=== PATIENT | female | born 2000 | race Two or more races ===

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

== ENCOUNTER 2018-03-18 18:50 | Emergency (ER) | payer OTHER ==
[~2018-03-18] VITALS: Ht 162.6 cm; Wt 99.8 kg
[2018-03-18 20:25] LABS: Basophils # (auto) 0 uL; Basophils % (auto) 0.3 % (0.0-2.0); Eosinophils # (auto) 0.1 uL; Eosinophils % (auto) 0.8 % (0.0-7.0); Hematocrit 40.3 % (36.0-46.0); Hemoglobin 13.9 g/dL (12.2-16.2); Lymphocytes % (auto) 15.5 % (10.0-50.0); Mean Corpuscular Hemoglobin 30.8 pg (28.0-32.0); Mean Corpuscular Hgb Conc. 34.4 g/dL (32.0-36.0); Mean Corpuscular Volume 89.6 fL (80.0-100.0); Monocytes # (auto) 0.6 uL; Monocytes % (auto) 4.9 % (0.0-12.0); Neutrophils % (auto) 78.5 % (37.0-80.0); Platelet Count (auto) 219 10^3/uL (140-450); Red Cell Distribution Width 12.9 % (11.8-14.3); White Blood Cell 12.7 10^3/uL (4.4-10.8)
[2018-03-18 20:43] LABS: Albumin 3.3 g/dL (3.4-5.0); BUN/Creatinine Ratio 6.7; Calcium 8.5 mg/dL (8.5-10.1); Potassium 3.7 mmol/L (3.5-5.1)
[2018-03-18 20:46] LABS: Bilirubin, Total 0.5 mg/dL (0.2-1.0); Total Protein 7.5 g/dL (6.4-8.2)
[2018-03-18 21:18] LABS: Urine Specific Gravity 1.022 (1.001-1.035)
[2018-03-18 21:19] LABS: Urine Blood 1+ /uL (Negative)
[2018-03-18 21:20] LABS: Urine Bacteria MODERATE /hpf (None Seen); Urine Mucus FEW (None Seen); Urine WBC 25-30 /hpf (0 - 5)
[2018-03-18 22:47] VITALS: BP 108/66
== END 2018-03-19 00:18 | disposition home or self-care (01) ==
LOC: ER 18:50
DX: O23.41 Unspecified infection of urinary tract in pregnancy, first trimester (principal); Z3A.11 11 weeks gestation of pregnancy
CPT/HCPCS: 36415; 76801; 80053; 81001; 82150; 83690; 84702; 85025

== ENCOUNTER 2018-09-12 08:30 | Observation (INO) | payer MEDICAID, OTHER ==
[2018-09-12 09:32] LABS: Urine Bacteria MANY /hpf (None Seen); Urine Blood 1+ /uL (Negative); Urine Mucus FEW (None Seen); Urine WBC 17 /hpf (0 - 5)
[2018-09-12 11:15] LABS: Basophils # (auto) 0 uL; Eosinophils # (auto) 0 uL; Eosinophils % (auto) 0.2 % (0.0-7.0); Hemoglobin 10.8 g/dL (12.2-16.2); Mean Corpuscular Hemoglobin 26.9 pg (28.0-32.0); Monocytes # (auto) 0.5 uL
[2018-09-12 11:17] LABS: Basophils % (auto) 0.2 % (0.0-2.0); Hematocrit 32.5 % (36.0-46.0); Lymphocytes # (auto) 1.9 uL; Lymphocytes % (auto) 16.5 % (10.0-50.0); Mean Corpuscular Hgb Conc. 33.1 g/dL (32.0-36.0); Mean Corpuscular Volume 81.4 fL (80.0-100.0); Neutrophils % (auto) 79.1 % (37.0-80.0); Platelet Count (auto) 256 10^3/uL (140-450); Red Blood Cells 3.99 10^6/uL (4.0-5.20); Red Cell Distribution Width 14.4 % (11.8-14.3); White Blood Cell 11.4 10^3/uL (4.4-10.8)
[2018-09-12 11:26] LABS: Albumin 2.5 g/dL (3.4-5.0); Anion Gap 8 (5-15); Blood Urea Nitrogen 5 mg/dL (7-18); Calcium 8.2 mg/dL (8.5-10.1); Carbon Dioxide 21 mmol/L (21-32); Chloride 107 mmol/L (98-107); Glucose 72 mg/dL (74-106); Potassium 3.7 mmol/L (3.5-5.1); Sodium 136 mmol/L (136-145)
[2018-09-12 11:31] LABS: Alanine Aminotransferase 13 U/L (13-56); Alkaline Phosphatase 211 U/L (45-117); Aspartate Aminotransferase 11 U/L (15-37); BUN/Creatinine Ratio 11.4; Bilirubin, Total 0.4 mg/dL (0.2-1.0); Total Protein 6.5 g/dL (6.4-8.2); Uric Acid 4.3 mg/dL (2.6-6.0)
[2018-09-12 11:33] LABS: INR 0.9 (0.9-1.15); Partial Thromboplastin Time 26.4 sec (23.78-33.04); Prothrombin Time 9.7 sec (9.27-12.13)
[2018-09-12 11:45] LABS: GFR African American > 60 mL/min; GFR Non-African American > 60 mL/min
== END 2018-09-12 12:15 | disposition home or self-care (01) | DRG 566 ==
LOC: LDRP 08:30
PROVIDERS: ADMIT Obstetrics & Gynecology; ATTEND Obstetrics & Gynecology
DX: O23.43 Unspecified infection of urinary tract in pregnancy, third trimester (principal); O26.893 Other specified pregnancy related conditions, third trimester; N89.8 Other specified noninflammatory disorders of vagina; O62.9 Abnormality of forces of labor, unspecified; O21.2 Late vomiting of pregnancy; Z3A.37 37 weeks gestation of pregnancy
CPT/HCPCS: 36415; 59025; 80053; 81001; 81002; 84550; 85025; 85610; 85730; G0378

== ENCOUNTER 2018-09-23 17:00 | Observation (INO) | payer MEDICAID ==
[2018-09-23] MEDS ORDERED: PREN-96 PO (18:41)
== END 2018-09-23 20:03 | disposition home or self-care (01) | DRG 566 ==
LOC: LDRP 17:00
PROVIDERS: ADMIT Specialist; ATTEND Specialist
DX: O26.853 Spotting complicating pregnancy, third trimester (principal); O62.9 Abnormality of forces of labor, unspecified; O99.343 Other mental disorders complicating pregnancy, third trimester; F12.90 Cannabis use, unspecified, uncomplicated; Z3A.39 39 weeks gestation of pregnancy
CPT/HCPCS: 59025; G0378

== ENCOUNTER 2018-09-27 10:00 | Observation (INO) | payer MEDICAID ==
[~2018-09-27 10:00] MED LIST: PREN-96 PO
== END 2018-09-27 11:25 | disposition home or self-care (01) | DRG 566 ==
LOC: LDRP 10:00
PROVIDERS: ADMIT Obstetrics & Gynecology; ATTEND Obstetrics & Gynecology
DX: O48.0 Post-term pregnancy (principal); Z3A.40 40 weeks gestation of pregnancy
CPT/HCPCS: 59025; 76818; 81002; G0378

== ENCOUNTER 2018-09-29 10:30 | Observation (INO) | payer MEDICAID | END 2018-09-29 12:15 | disposition home or self-care (01) | DRG 566 | LOC: LDRP 10:30 | PROVIDERS: ADMIT Specialist; ATTEND Specialist | DX: O48.0 Post-term pregnancy (principal); Z3A.40 40 weeks gestation of pregnancy | CPT/HCPCS: 59025; 76818; 81002; G0378 ==

== ENCOUNTER 2018-09-30 09:20 | Inpatient (IN) | payer MEDICAID ==
[~2018-09-30] VITALS: Ht 162.6 cm; Wt 105.7 kg
[2018-09-30] MEDS ORDERED: LACT. RINGERS/OXYTOCIN 20UNITS 1,000 ML IV SCH (09:25)
[2018-09-30] MEDS ORDERED: METHYLERGONOVINE MALEATE 0.2 MG/ML AMP IM PRN (09:30)
[2018-09-30] MEDS ORDERED: PENICILLIN G POT 5MIL/D5 50ML 50 ML IV ONE (09:30)
[2018-09-30] MEDS ORDERED: LIDOCAINE 2%HCL (LOCAL ANESTH.) INJ 20ML MDV ID ONE (09:30)
[2018-09-30] MEDS ORDERED: NALBUPHINE HCL 10 MG/1ml INJECTION IV PRN (09:30)
[2018-09-30] MEDS: LACTATED RINGER'S 1,000 ML IV SCH ×2 (09:50→15:03)
[2018-09-30 10:11] LABS: Basophils # (auto) 0 uL; Basophils % (auto) 0.4 % (0.0-2.0); Eosinophils # (auto) 0 uL; Eosinophils % (auto) 0.2 % (0.0-7.0); Hematocrit 34.1 % (36.0-46.0); Hemoglobin 11.1 g/dL (12.2-16.2); Mean Corpuscular Hemoglobin 26.4 pg (28.0-32.0); Mean Corpuscular Hgb Conc. 32.7 g/dL (32.0-36.0); Mean Corpuscular Volume 80.7 fL (80.0-100.0); Monocytes # (auto) 0.5 uL; Neutrophils # (auto) 7.8 uL; Neutrophils % (auto) 75.4 % (37.0-80.0); Nucleated Red Blood Cells % 0.1 %; Platelet Count (auto) 281 10^3/uL (140-450); Red Blood Cells 4.22 10^6/uL (4.0-5.20); Red Cell Distribution Width 15.5 % (11.8-14.3); White Blood Cell 10.3 10^3/uL (4.4-10.8)
[2018-09-30 10:23] LABS: INR 0.88 (0.9-1.15); Partial Thromboplastin Time 25.2 sec (23.78-33.04); Prothrombin Time 9.5 sec (9.27-12.13)
[2018-09-30 10:24] LABS: Urine Bacteria MOD /hpf (None Seen); Urine Blood Negative /uL (Negative); Urine Mucus FEW (None Seen); Urine Specific Gravity 1.025 (1.001-1.035); Urine WBC 10 /hpf (0 - 5)
[2018-09-30 10:26] LABS: Albumin 2.6 g/dL (3.4-5.0); Calcium 8.5 mg/dL (8.5-10.1); Potassium 3.7 mmol/L (3.5-5.1)
[2018-09-30 10:28] LABS: Alcohol, Urine < 3.0 mg/dL (0-5); Amphetamine Screen, Urine NEGATIVE (NEGATIVE); Barbiturate Scree,Urine NEGATIVE (NEGATIVE); Benzodiazephine Screen, Urine NEGATIVE (NEGATIVE); Cannabinoid Screen, Urine NEGATIVE (NEGATIVE); Cocaine Screen, Urine NEGATIVE (NEGATIVE); Opiate Scree,Urine NEGATIVE (NEGATIVE); Phencyclidine Screen, Urine NEGATIVE (NEGATIVE)
[2018-09-30 10:29] LABS: BUN/Creatinine Ratio 10.2; Bilirubin, Total 0.3 mg/dL (0.2-1.0); Total Protein 6.6 g/dL (6.4-8.2)
[2018-09-30] MEDS: DERMOPLAST 60ML BOTTLE TOP PRN (10:47)
[2018-09-30] MEDS: PHISODERM TOP SOLN 240ML BTL TOP PRN (10:47)
[2018-09-30] MEDS: WITCH HAZEL-GLYCERIN PAD TOP PRN (10:47)
[2018-09-30] MEDS: PENICILLIN G POTASSIUM 2,500,000 UNITS in D5W 5% 50 ML IV SCH ×2 (15:04→19:41)
[2018-10-01] MEDS ORDERED: fentaNYL CITRATE 100 MCG/2 ML VL IV ONE
[2018-10-01] MEDS ORDERED: LIDOCAINE W/ EPINEPHRINE 1% 20ML VIAL ID ONE
[2018-10-01] MEDS ORDERED: NALOXONE HCL 0.4 MG/ML VIAL IV ONE
[2018-10-01] MEDS ORDERED: ePHEDrine SULFATE 50 MG/ML AMP IV ONE
[2018-10-01] MEDS ORDERED: fentaNYL W ROPIVACAINE 150 ML EPI SCH
[2018-10-01] MEDS ORDERED: LIDOCAINE W/ EPINEPHRINE 1 % INJ 30ML ONE (00:28)
[2018-10-01] MEDS ORDERED: LIDOCAINE HCL 2 %PF INJ 10ML AMP IJ ONE ×2 (00:31)
[2018-10-01] MEDS: PENICILLIN G POTASSIUM 2,500,000 UNITS in D5W 5% 50 ML IV SCH ×3 (00:41→09:40)
[2018-10-01] MEDS ORDERED: SODIUM CHLORIDE LOCK 10 ML ONE (01:51)
[2018-10-01] MEDS: LACTATED RINGER'S 1,000 ML IV SCH ×2 (09:25→10:50)
[2018-10-01] MEDS ORDERED: CARBOPROST TROMETHAMINE 250 MCG/1ML VIAL IM ONE ×4 (11:45→12:30)
[2018-10-01] MEDS: ceFAZolin 1GM/50ML 50 ML IV SCH ×2 (12:32→21:49)
[2018-10-01] MEDS: WITCH HAZEL-GLYCERIN PAD TOP PRN (12:57)
[2018-10-01] MEDS: DERMOPLAST 60ML BOTTLE TOP PRN (12:57)
[2018-10-01] MEDS: PHISODERM TOP SOLN 240ML BTL TOP PRN (12:57)
[2018-10-01] MEDS ORDERED: ONDANSETRON HCL 4 MG/2 ML VIAL IV PRN (13:30)
[2018-10-01 13:45] VITALS: BP 119/69
--- NOTE | 2018-10-01 13:45 | NUR ---
Ambulation: Patient OOB with standby assistance by RN. Patient ambulated to bathroom with steady gait. Patient able to void 300ml without difficulty. [facility] teaching provided with returned demonstration by patient. Clean gown provided and bed linen changed. Patient ambulated back to bed with steady gait and no distress noted.
[2018-10-01 14:50] VITALS: BP 113/70
--- NOTE | 2018-10-01 15:15 | NUR ---
VOID #2 PT VOIDED 150ML URINE WITHOUT DIFFICULTY. WILL CONTINUE TO MONITOR.
--- NOTE | 2018-10-01 18:18 | NUR ---
REPORT PT REPORT GIVEN TO Nettie NICHOLE RN ON STABLE patient, RELINQUISHED CARE. NO S/S OF DISTRESS OR SOB NOTED.
[2018-10-01] MEDS ORDERED: LACT. RINGERS/OXYTOCIN 20UNITS 500 ML IV ONE (18:28)
[2018-10-01 18:30] VITALS: BP 110/65
[2018-10-01] MEDS ORDERED: ACETAMINOPHEN 325 MG TAB PO PRN (18:30)
[2018-10-01] MEDS ORDERED: DIPHENOXYLATE W/ATROPINE 2.5 MG TAB PO PRN (18:30)
[2018-10-01] MEDS ORDERED: IBUPROFEN 600 MG TAB PO PRN (18:30)
[2018-10-01 22:59] VITALS: BP 111/53
[2018-10-02] MEDS ORDERED: LACTATED RINGER'S 1,000 ML IV ONE (00:30)
[2018-10-02 02:51] VITALS: BP 108/50
[2018-10-02] MEDS: ceFAZolin 1GM/50ML 50 ML IV SCH (05:52)
[2018-10-02 07:15] VITALS: BP 89/58
[2018-10-02 07:45] VITALS: BP 96/55
[2018-10-02 08:10] VITALS: BP 123/65
[2018-10-02 11:00] VITALS: BP 102/63
--- NOTE | 2018-10-02 13:00 | NUR ---
DR. PAL IN NURSING STATION AT 0700 AM AND MADE AWARE Evelia IRVIN DID NOT PUT IN DISCHARGE ORDERS SBAR REPORT WAS GIVEN TO DR. PAL . NEW ORDERS RECEIVED D/C MEDICATION ANCEF AND DISCHARGE PATIENT HOME IF AFTER [address] PAL IN NURSING STATION AND MADE AWARE PATIENT IS AFEBRILE . PER DEMARCO OKAY TO DISCHARGE.
[2018-10-02 14:11] LABS: RPR Non Reactive (Non Reactive)
[2018-10-02 15:25] VITALS: BP 107/51
[2018-10-02] MEDS: WITCH HAZEL-GLYCERIN PAD TOP PRN (15:38)
--- NOTE | 2018-10-02 15:39 | NUR ---
Discharge: Discharge instructions given as ordered. Pt encouraged to follow up with PATTERNATOR as instructed. All questions and concerns addressed. Patient verbalized understanding. Medication reconciliation completed and copy given to patient. Patient encouraged to prepare to depart unit.
--- NOTE | 2018-10-02 15:40 | NUR ---
Discharge: Patient taken to vehicle via ambulation with all personal belongings, accompanied by staff and family member. No distress noted at time of departure, no adverse changes in status since initial assessment.
== END 2018-10-02 15:40 | disposition home or self-care (01) | DRG 560 ==
LOC: LDRP 09:20
PROVIDERS: ADMIT Obstetrics & Gynecology; ATTEND Obstetrics & Gynecology
PROC: 0KQM0ZZ Repair Perineum Muscle, Open Approach (ICD-10-PCS; principal; 2018-10-01)
PROC: 10E0XZZ Delivery of Products of Conception, External Approach (ICD-10-PCS; 2018-10-01)
PROC: 0W8NXZZ Division of Female Perineum, External Approach (ICD-10-PCS; 2018-10-01)
PROC: 3E0R3BZ Introduction of Anesthetic Agent into Spinal Canal, Percutaneous Approach (ICD-10-PCS; 2018-10-01)
PROC: 00HU33Z Insertion of Infusion Device into Spinal Canal, Percutaneous Approach (ICD-10-PCS; 2018-10-01)
DX: O70.1 Second degree perineal laceration during delivery (principal); O72.1 Other immediate postpartum hemorrhage; Z37.0 Single live birth; Z3A.40 40 weeks gestation of pregnancy
CPT/HCPCS: 36415; 51702; 59025; 59409; 80053; 80307; 81001; 81002; 85025; 85610; 85730; 86592; 86850; 86900; 86901; 96361; 96366; 96372; A6257; G0378; J0690; J2540; J2590; J3010; J7060

== ENCOUNTER 2024-05-27 15:33 | Emergency (ER) | payer MEDICAID ==
[~2024-05-27] VITALS: Ht 162.6 cm; Wt 107.6 kg
[2024-05-27] MEDS: SODIUM CHLORIDE 0.9% 1,000 ML IV ONE (16:51)
[2024-05-27] MEDS: LIDOCAINE VISCOUS 2% 15ML UD PO ONE (16:54)
[2024-05-27] MEDS: KETOROLAC TROMETH 30 MG/ML 1ML VIAL IV ONE (17:01)
[2024-05-27 17:28] LABS: Urine Bacteria FEW /hpf (None Seen); Urine Blood Negative /uL (Negative); Urine Clarity Clear (Clear); Urine Color Light-Yellow (Yellow); Urine Mucus FEW (None Seen); Urine Protein, UAD Negative (Negative); Urine Urobilinogen Normal (Negative); Urine WBC 2 /hpf (0 - 5)
[2024-05-27 18:40] LABS: Basophils # (auto) 0 10 ^3/uL (0-0.2); Basophils % (auto) 0.4 % (0.0-2.0); Eosinophils # (auto) 0.1 10 ^3/uL (0-0.8); Hematocrit 41.6 % (36.0-46.0); Hemoglobin 14.2 g/dL (12.2-16.2); Lymphocytes # (auto) 3.1 10 ^3/uL (0.4-5.4); Lymphocytes % (auto) 31.7 % (10.0-50.0); Mean Corpuscular Hemoglobin 30.5 pg (28.0-32.0); Mean Corpuscular Hgb Conc. 34.1 g/dL (32.0-36.0); Mean Corpuscular Volume 89.6 fL (80.0-100.0); Monocytes # (auto) 0.6 10 ^3/uL (0-1.3); Monocytes % (auto) 6.4 % (0.0-12.0); Neutrophils # (auto) 5.9 10 ^3/uL (1.6-8.6); Neutrophils % (auto) 60.5 % (37.0-80.0); Nucleated Red Blood Cells % 0.1 %; Platelet Count (auto) 207 10^3/uL (140-450); Red Blood Cells 4.64 10^6/uL (4.0-5.20); Red Cell Distribution Width 12.8 % (11.8-14.3); White Blood Cell 9.7 10^3/uL (4.4-10.8)
[2024-05-27 18:58] LABS: Alanine Aminotransferase 15 U/L (7-40); Albumin 4.3 g/dL (3.2-4.8); Alkaline Phosphatase 70 U/L (46-116); Anion Gap 8 (5-15); Aspartate Aminotransferase 12 U/L (13-40); BUN/Creatinine Ratio 10.1 (10.0-20.0); Bilirubin, Total 0.2 mg/dL (0.2-1.0); Blood Urea Nitrogen 7 mg/dL (9-23); Calcium 9.6 mg/dL (8.7-10.4); Carbon Dioxide 26 mmol/L (20-31); Chloride 107 mmol/L (98-107); Glucose 78 mg/dL (74-106); Potassium 4.2 mmol/L (3.5-5.1); Sodium 141 mmol/L (136-145); Total Protein 7.1 g/dL (5.7-8.2)
[2024-05-27] MEDS ORDERED: OMEP-434 PO (21:30)
[2024-05-27] MEDS ORDERED: ACET-1304 PO (21:30)
[2024-05-27] MEDS ORDERED: CEPH500C PO (21:30)
[2024-05-27 22:01] VITALS: BP 126/71; PULSE 87; RESP 18; TEMP 98.3; O2SAT 98
== END 2024-05-27 22:03 | disposition home or self-care (01) ==
LOC: ER 15:42
DX: N39.0 Urinary tract infection, site not specified (principal); R10.2 Pelvic and perineal pain; K29.70 Gastritis, unspecified, without bleeding; N83.201 Unspecified ovarian cyst, right side
CPT/HCPCS: 36415; 74176; 80053; 81001; 84702; 85025; 96361; 96374; 99285; J1885; J7030